=== PATIENT | male | born 2000 | race Caucasian/White ===

== ENCOUNTER 2022-06-15 17:37 | Emergency (ER) | payer BC ==
[2022-06-15] MEDS ORDERED: Rabies Vaccine Human 2.5 UNITS VIAL ONE (17:52)
== END 2022-06-15 18:12 | disposition home or self-care (01) ==
LOC: CSHERS 17:37 → CSHER/OP 17:37 → EDSTATUS 17:40 → CSHERS 18:12
DX: Z23 Encounter for immunization (principal); F17.290 Nicotine dependence, other tobacco product, uncomplicated
CPT/HCPCS: 90471; 90675

== ENCOUNTER → 2022-06-19 | Day surgery (SDC) | payer BC ==
[~2022-06-19] MED LIST: Rabies Vaccine Human 2.5 UNITS VIAL ONE
== END ==
LOC: CSHER/OP 10:24
PROVIDERS: ATTEND Emergency Medicine
DX: Z23 Encounter for immunization (principal)
CPT/HCPCS: 90471; 90675

== ENCOUNTER → 2022-06-26 | Day surgery (SDC) | payer BC | LOC: CSHERS 10:35 | PROVIDERS: ATTEND Emergency Medicine | DX: Z23 Encounter for immunization (principal) | CPT/HCPCS: 90471; 90675 ==